=== PATIENT | male | born 1975 | race Caucasian/White ===

== ENCOUNTER → 2019-12-02 | Outpatient (CLI) | payer MEDICAID ==
[~2019-12-02] MED LIST: ARIP10TA9 PO; CRESTOR5 MG PO; DIVA-53 PO; FLUO40CA2 PO; HYDR-3165 PO
== END ==
LOC: EDBD 13:09 → LAB 13:09
PROVIDERS: ATTEND Orthopaedic Surgery
DX: Z01.812 Encounter for preprocedural laboratory examination (principal); Z20.828 Contact with and (suspected) exposure to other viral communicable diseases; G56.20 Lesion of ulnar nerve, unspecified upper limb
CPT/HCPCS: U0003-CS

== ENCOUNTER 2019-12-05 05:48 | Day surgery (SDC) | payer MEDICAID ==
[~2019-12-05] VITALS: Ht 176.5 cm; Wt 114.3 kg
[2019-12-05] MEDS ORDERED: DIVA-53 PO (06:57)
[2019-12-05] MEDS ORDERED: LIDOCAINE 2% PF 5 ML VIAL. ONE (06:59)
[2019-12-05] MEDS ORDERED: DEXAMETHASONE SOD PHOS 4 MG/ML VIAL ONE (06:59)
[2019-12-05] MEDS ORDERED: PROPOFOL 10 MG/ML (20ML) VIAL. IV ONE (06:59)
[2019-12-05] MEDS ORDERED: ONDANSETRON PF 4 MG/2 ML VIAL. ONE (06:59)
[2019-12-05] MEDS ORDERED: MORPHINE SULFATE 2 MG/ML VIAL. IV PRN (07:00)
[2019-12-05] MEDS ORDERED: PROCHLORPERAZINE 10 MG/2 ML VIAL. IV PRN (07:00)
[2019-12-05] MEDS ORDERED: IV RINGERS,LACTATED 1000ML 1,000 ML IV SCH (07:00)
[2019-12-05] MEDS ORDERED: MIDAZOLAM HCL/PF 2 MG/2 ML VIAL. ONE (07:00)
[2019-12-05] MEDS ORDERED: fentaNYL PF VIAL 100 MCG/2 ML VIAL IV PRN ×2 (07:00)
[2019-12-05] MEDS ORDERED: HYDROmorphone 2 MG/ML VIAL IV PRN (07:00)
[2019-12-05] MEDS ORDERED: fentaNYL PF VIAL 100 MCG/2 ML VIAL ONE (07:00)
[2019-12-05] MEDS ORDERED: ONDANSETRON PF 4 MG/2 ML VIAL. IV PRN (07:00)
[2019-12-05] MEDS ORDERED: FLUO40CA2 PO (07:02)
[2019-12-05] MEDS ORDERED: CRESTOR5 MG PO (07:03)
[2019-12-05] MEDS ORDERED: ARIP10TA9 PO (07:05)
[2019-12-05] MEDS ORDERED: HYDR-3165 PO (07:43)
--- NOTE | 2019-12-05 07:44 | DISCH ---
DISCHARGE INSTRUCTIONS Condition on Discharge Condition on Discharge: Stable Activity After Discharge Activity Instructions for Disc: Other, see below (Gentle motion to right elbow, may do fine motor use and keep arm moving to allow the nerve to glide after release) Weight Bearing Status after Di: As tolerated Diet after Discharge Diet after Discharge: Regular Wound Incision Care Wound/Incision Care: Change dressing (May remove dressing in 3 days may then shower if no drainage and can cover with light dressing as needed) Contacting the DRGypsy after DC Call your doctor for: Concerns you may have Follow-Up Follow up with: Dr. Mccoy 10 days LITZY MCCOY MD Dec 05, 2019 07:44
[2019-12-05] MEDS ORDERED: BUPIVACAINE-EPI 0.5%-1:200000 MPF 30 ML VIAL. INJ ONE (07:45)
[2019-12-05] MEDS ORDERED: ePHEDrine PF IN SALINE 50 MG/10 ML SYRINGE. IV ONE (07:47)
[2019-12-05] MEDS ORDERED: HYDROcodone/APAP 7.5/325MG 1 TAB TABLET ONE (09:12)
[2019-12-05] MEDS ORDERED: HYDROcodone/APAP 7.5/325MG 1 TAB TABLET PO ONE (09:30)
[2019-12-05 09:35] VITALS: BP 135/75
--- NOTE | 2019-12-05 23:31 | PDOC4 ---
Operative Note Operative Note Date of surgery: 12/05/2019 Preoperative diagnosis: Right cubital tunnel syndrome Postoperative diagnosis: Same with severe ulnar nerve compression at cubital tunnel Operative procedure: Right cubital tunnel release Surgeon: Darius [employer] Sorter: Prashanth wilson Anesthesia: General Estimated blood loss: 15 cc Complications: None Operative indications: Patient has severe symptoms with ongoing worsening ulnar neuropathy documented by EMG and also some tremors scheduled to be worked up by neurology in the future but not again directly related to this diagnosis. I had gone over with him operative versus nonoperative treatment options of the cubital tunnel syndrome and given that he is having worsening of his ongoing severe symptoms he wishes to proceed with surgery after having discussed risks benefits postoperative course to include possible nerve damage incomplete relief infection stiffness and pain medical or other anesthetic complications among others including the fact that his recovery could be over a long period of time and that we release the pressure on the nerve but the body overall has to respond in terms of his ongoing nerve function Operative text: Patient was identified procedure verified patient placed in the supine position on the operating table. After adequate amounts of general anesthesia were administered the right upper extremity was prepped and draped in standard sterile fashion with an upper arm tourniquet. After timeout was performed patient procedure identified and verified the right upper extremity was exsanguinated by Esmarch bandage tourniquet inflated to 250 mmHg a curvilinear incision was made over the medial elbow dissection carried out down to the cubital tunnel area which was carefully unroofed by sharp dissection under direct vision. The nerve was protected and release was performed from its proximal extent at the medial intermuscular septum throughout the entirety of the cubital tunnel and continuing through its insertion and early course of the flexor musculature. Severe compression was noted at the cubital tunnel and although the nerve was completely released no subluxation was noted throughout elbow flexion and extension and therefore transposition was not performed. Bleeding points were controlled by electrocautery thorough irrigation carried out normal saline solution closure accomplished with buried Vicryl suture and skin closure with nylon suture. Sterile soft dressings were applied fingers we re noted to be warm pink following deflation of the tourniquet and patient was returned to recovery room stable condition having tolerated the procedure well. Prashanth wilson was present for the procedure assisted in the patient positioning prepping draping retraction closure and dressings LITZY RODRIGUEZ MD Dec 05, 2019 23:31
== END 2019-12-05 11:01 | disposition home or self-care (01) ==
LOC: SURG 05:48 → MERGE 07:30 → SURG 11:01
PROVIDERS: ATTEND Orthopaedic Surgery
DX: G56.21 Lesion of ulnar nerve, right upper limb (principal); Z88.8 Allergy status to other drugs, medicaments and biological substances; Z79.899 Other long term (current) drug therapy
CPT/HCPCS: 64718; A7015; J0690; J1100; J2250; J2405; J2704; J3010

== ENCOUNTER → 2020-03-15 | Outpatient (CLI) | payer MEDICAID ==
--- NOTE | 2020-03-17 12:04 | SLEEP ---
DATE OF STUDY: 03/15/2020 HOME SLEEP STUDY ATTENDING PHYSICIAN: Dr. Doug Brown The patient is a 44-year-old who weighs 260 pounds with a BMI of 39.5. The patient underwent home sleep study performed at [facility]. During the night study, the patient had 493 obstructive apneas, 65 mixed apneas, 14 central apneas and 11 hypopneas. The patient's AHI was 82 per hour. Nocturnal oximetry study revealed an average oxygen saturation of 91% with the lowest of 80%. Sixty minutes were spent with oxygen saturation of less than 90%. Mean heart rate 67 beats per minute. IMPRESSION: 1. Severe obstructive sleep apnea at an AHI of 82 per hour. 2. Nocturnal hypoxia secondary to obstructive sleep apnea. RECOMMENDATIONS: 1. The patient should return to the sleep lab for in-lab titration study. 2. Once the patient is optimally treated with CPAP, then follow up in 4-6 weeks to assess compliance with CPAP and to document clinical improvement. 3. Weight loss is advised. 4. Avoid TRAPE[employer]IST depressants. 5. Caution regarding driving until symptoms of sleep apnea resolve with the use of CPAP. YESICA ROBLES MD DR: CUONG/sue JOB#: [id number] / [id number] Sasha Moctezuma MD
== END ==
LOC: RT 07:15
PROVIDERS: ATTEND Family Medicine
DX: R06.81 Apnea, not elsewhere classified (principal)
CPT/HCPCS: 95800; G0399

== ENCOUNTER → 2020-03-30 | Outpatient (CLI) | payer MEDICAID ==
--- NOTE | 2020-03-31 09:32 | SLEEP ---
DATE OF STUDY: 03/30/2020 SLEEP STUDY ATTENDING PHYSICIAN: Sasha Brown MD. The patient is a 44-year-old who weighs 250 pounds with a BMI of 37. The patient had a home sleep study on 03/15/2020 and was found to have severe MIMI at an AHI of 82 per hour. The patient also had nocturnal hypoxia. The patient was referred for in-lab CPAP titration study. During the night study, the patient spent 392 minutes in bed and slept for 376 minutes with a sleep efficiency of 96%. Sleep latency was 11 minutes with a REM latency of 249 minutes. Sleep architecture showed normal stage 1 and stage 2 sleep, increased slow wave and normal REM sleep. EKG monitoring revealed normal sinus rhythm, no sustained arrhythmias observed. Average heart rate 64 beats per minute. No PLMs observed. The patient was started on CPAP at 5 cm water and titrated up to 20 cm water. Due to persistent respiratory events, the patient was switched to BiPAP at 20/16 and titrated up to 25/20. At the final pressure, the patient slept for 53 minutes. The patient had supine as well as REM sleep. The patient's AHI was reduced to 1 per hour and oxygen saturation remained above 94%. The patient used a small size full face mask. IMPRESSION: 1. Severe obstructive sleep apnea diagnosed by home sleep study. 2. No clinically significant periodic limb movements. RECOMMENDATIONS: 1. BiPAP at a pressure of 25/20 completely eliminated the patient's sleep apnea and should be used on a nightly basis. 2. Follow up in 4-6 weeks to assess compliance with BiPAP and to document clinical improvement. 3. Weight loss is strongly advised. 4. Avoid CASTING [employer]SE [employer]ER depressants. 5. Caution regarding driving until symptoms of sleep apnea resolve with the use of BiPAP. 6. The patient used a small size full face mask. YESICA ROBLES MD DR: CUONG/sue JOB#: [id number] / [id number]
== END ==
LOC: SLPLAB 18:45
PROVIDERS: ATTEND Family Medicine
DX: G47.33 Obstructive sleep apnea (adult) (pediatric) (principal)
CPT/HCPCS: 95811

== ENCOUNTER 2020-06-14 17:09 | Emergency (ER) | payer MEDICAID ==
[~2020-06-14] VITALS: Ht 177.8 cm; Wt 105.0 kg
--- NOTE | 2020-06-14 19:58 | RAD ---
EXAM: AP View of the chest DATE: 06/14/2020 7:10 PM INDICATION: Reason: cough x 1 week RM 22 / Spl. Instructions: / History: COMPARISON: No Prior FINDINGS: The heart is not enlarged. Mediastinal and hilar contours are normal. No focal parenchymal airspace opacity. No pleural effusion or pneumothorax. IMPRESSION: 1. No radiographic evidence for acute cardiopulmonary process. Electronically signed by: Edwar Anton MD (06/14/2020 7:55 PM) JESSIKA
--- NOTE | 2020-06-14 20:21 | EKG ---
[facility] [address] [place] [address] Test Date: 2020-06-14 Test Time: 20:15:05 Pat Name: ENEDINA HO Department: Room: Gender: M Manager Trust: : 1975 Requested By: DECLAN GARCIA Order Number: [id number] Reading MD: Measurements Intervals [place] Rate: 81 P: 45 NC: 160 QRS: 14 QRSD: 102 T: 52 QT: 384 QTc: 447 Interpretive Statements SINUS RHYTHM QRS(T) CONTOUR ABNORMALITY CONSIDER ANTEROSEPTAL MYOCARDIAL DAMAGE POSSIBLY ABNORMAL ECG RI6.01 No previous ECG available for comparison
--- NOTE | 2020-06-14 20:23 | ED.ADGEN ---
Past Medical History Past Medical History: Anxiety, Depression, Schizophrenia Additional Past Medical Histor: autism Additional Past Surgical Histo: R elbow Smoking Status: Former Smoker (quit 18 months ago) Alcohol Use: None Drug Use: None General Adult EDM: Chief Complaint: SHORTNESS OF BREATH HPI: HPI: Patient is a 45 year old male who presents to the emergency department with complaints of a sinus headache, nasal congestion, dry cough, sore throat, nausea, and diarrhea for the last week. Patient reports that he has had 2 episodes of diarrhea in the last 24 hours. He denies any blood in his stools, abdominal pain, decreased urine output, dysuria, hematuria, increased urinary frequency. Patient denies any dizziness or palpitations. He reports that he has received both of his Covid immunizations and he denies any exposure to anyone with known COVID-19. Patient denies any fever, shortness of breath, wheezing, vision changes, numbness, tingling, or weakness. The patient currently reports discomfort in his chest that he describes as tightness, he currently rates the pain 4 out of 10 on the pain scale if he coughs the pain increases to 8 out of 10, he denies any alleviating factors. Review of Systems: Review of Systems: Complete ROS is negative unless otherwise noted in HPI. Current Medications: Current Medications Medications (Trade) Dose Ordered Sig/Domenic Start Time Stop Time Status Last Admin Dose Admin Naproxen (Naprosyn) 500 mg 1X ONCE 06/14/20 22:30 06/14/20 22:31 DC 06/14/20 22:30 500 MG Allergies: Allergies: Allergies Coded Allergies Type Severity Reaction Last Updated Verified lurasidone Allergy Severe seizures 12/05/19 Yes ketorolac Allergy Intermediate hives 06/14/20 Yes Physical Exam: PE: See Above Constitutional: Well developed, well nourished, no acute distress, obese HENT: Normocephalic, atraumatic, bilateral external ears normal, cobblestone appearance of posterior pharynx caridad, moist mucous membranes; nose congested with erythema and edema of the nasal turbinates bilaterally Eyes: PERRLA, conjunctiva injected bilaterally, no discharge. [] Neck: Normal range of motion, supple, nontender, no stridor. [] Cardiovascular:Heart rate regular rhythm, no murmur [] Lungs & Thorax: Bilateral breath sounds clear to auscultation, Respirations even and unlabored, no retractions, no respiratory distress, no wheezing, reproducible chest pain with palpation Skin: Warm, dry, no erythema, no rash. [] Back: No tenderness Extremities: No cyanosis, ROM intact, no edema Neurologic: Alert and oriented X 3, normal motor, normal sensory, no focal deficits noted. [] Psychologic: Affect normal, judgement normal, mood normal. Current Patient Data: Labs: Laboratory Tests Test 06/14/20 21:00 06/14/20 22:40 White Blood Count 5.9 x10^3/uL (4.0-11.0) Red Blood Count 4.75 x10^6/uL (4.30-5.70) Hemoglobin 13.6 g/dL (13.0-17.5) Hematocrit 40.8 % (39.0-53.0) Mean Corpuscular Volume 86 fL (79-100) Mean Corpuscular Hemoglobin 29 pg (25-35) Mean Corpuscular Hemoglobin Concent 33 g/dL (31-37) Red Cell Distribution Width 14.2 % (11.5-14.5) Platelet Count 250 x10^3/uL (140-400) Neutrophils (%) (Auto) 58 % (31-73) Lymphocytes (%) (Auto) 29 % (24-48) Monocytes (%) (Auto) 11 % (0-9) H Eosinophils (%) (Auto) 2 % (0-3) Basophils (%) (Auto) 1 % (0-3) Neutrophils # (Auto) 3.4 x10^3/uL (1.8-7.7) Lymphocytes # (Auto) 1.7 x10^3/uL (1.0-4.8) Monocytes # (Auto) 0.6 x10^3/uL (0.0-1.1) Eosinophils # (Auto) 0.1 x10^3/uL (0.0-0.7) Basophils # (Auto) 0.0 x10^3/uL (0.0-0.2) Sodium Level 141 mmol/L (136-145) Potassium Level 4.2 mmol/L (3.5-5.1) Chloride Level 105 mmol/L (98-107) Carbon Dioxide Level 28 mmol/L (21-32) Anion Gap 8 (6-14) Blood Urea Nitrogen 17 mg/dL (8-26) Creatinine 1.1 mg/dL (0.7-1.3) Estimated GFR (Cockcroft-Gault) 73.1 BUN/Creatinine Ratio 15 (6-20) Glucose Level 90 mg/dL (70-99) Calcium Level 8.7 mg/dL (8.5-10.1) Total Bilirubin 0.4 mg/dL (0.2-1.0) Aspartate Amino Transferase (AST) 21 U/L (15-37) Alanine Aminotransferase (ALT) 36 U/L (16-63) Alkaline Phosphatase 68 U/L (46-116) Creatine Kinase 164 U/L (39-308) Creatine Kinase MB (Mass) 1.3 ng/mL (0.0-3.6) Creatine Kinase MB Relative Index 0.8 % (0-4) Troponin I Quantitative < 0.017 ng/mL (0.000-0.055) Total Protein 7.4 g/dL (6.4-8.2) Albumin 4.4 g/dL (3.4-5.0) Albumin/Globulin Ratio 1.5 (1.0-1.7) SARS-CoV-2 RNA (LÁZARO) Negative (Negative) Laboratory Tests 06/14/20 21:00 Laboratory Tests 06/14/20 21:00 Vital Signs: Vital Signs Date Time Temp Pulse Resp B/P (MAP) Pulse Ox O2 Delivery O2 Flow Rate FiO2 06/14/20 21:45 79 18 141/79 (99) 99 Room Air 06/14/20 18:45 98.0 98.0 EKG: EK-sinus rhythm, rate 81, no STEMI read by Dr. Danielle[] Heart Score: C/O Chest Pain: Yes HEART Score for Chest Pain: HEART Score for Chest Pain Response (Comments) Value History Slighlty/Non-Suspicious 0 ECG Normal 0 Age < 45 0 Risk Factors >3 Risk Factors or Hx CAD 2 Troponin < Normal Limit 0 Total 2 Risk Factors: Risk Factors: DM, Current or recent (<one month) smoker, HTN, HLP, family histo ry of CAD, obesity. Risk Scores: Score 0 - 3: 2.5% MACE over next 6 weeks - Discharge Home Score 4 - 6: 20.3% MACE over next 6 weeks - Admit for Clinical Observation Score 7 - 10: 72.7% MACE over next 6 weeks - Early Invasive Strategies Radiology/Procedures: Radiology/Procedures: PROCEDURE: CHEST AP ONLY EXAM: AP View of the chest DATE: 06/14/2020 7:10 PM INDICATION: Reason: cough x 1 week RM 22 / Spl. Instructions: / History: COMPARISON: No Prior FINDINGS: The heart is not enlarged. Mediastinal and hilar contours are normal. No focal parenchymal airspace opacity. No pleural effusion or pneumothorax. IMPRESSION: 1. No radiographic evidence for acute cardiopulmonary process. [] Course & Med Decision Making: Course & Med Decision Making Pertinent Labs and Imaging studies reviewed. (See chart for details) 45-year-old male presented to the emergency department with multiple complaints Chest x-ray is unremarkable, EKG revealed no acute changes, CBC is unremarkable, CMP is unremarkable, CK and troponin levels were not elevated. Patient's vital signs are stable in the ER, COVID-19 test is pending. Physical exam is concerning for costochondritis and allergic rhinitis. Prescription written for naproxen. Patient encouraged to take a daily antihistamine, avoid exposure to airway irritants. Follow quarantine instructions until results of COVID-19 tests are known symptoms have resolved. Return to the ER if symptoms worsen or fever develops. Patient verbalized an understanding of home care, medications, follow-up, and return to ED instructions and was in agreement with the plan of care. [] Dragon Disclaimer: Dragon Disclaimer: This electronic medical record was generated, in whole or in part, using a voice recognition dictation system. Departure Departure Impression: Primary Impression: Acute costochondritis Additional Impressions: Allergic rhinitis Upper respiratory infection with cough and congestion Person under investigation for COVID-19 Disposition: 01 HOME / SELF CARE / HOMELESS Condition: STABLE Referrals: Sasha CONKLIN MD (PCP) Patient Instructions: Allergic Rhinitis, Costochondritis, [id number], Upper Respiratory Infection, Adult, [id number] Additional Instructions: Fill the prescription(s) and use as directed. Recommend that you take 10 mg of generic Zyrtec (cetirizine) or Claritin at bedtime and use over the counter Flonase (fluticasone) nasal spray 2 sprays each nostril once daily in the morning. You may take Tylenol as needed for pain/fever. Increase clear fluids. Avoid triggers such as smoke, fragrance, dust, and pollen. Follow-up with your primary care doctor if symptoms persist, return to the ER if symptoms worsen. Please follow the following quarantine instructions: You have been tested for or diagnosed with COVID-19. It is an infection caused by a new type of coronavirus. COVID-19 will cause cold-like or mild flu symptoms in most. It can cause more severe symptoms like problems breathing in some. There is no treatment for COVID-19. The body will clear the infection over time. Self-care will help to ease discomfort. Steps to Take: Self-Care Rest as needed. Healthy habits may help you feel better. Steps include: Choose healthy foods including fruits and vegetables. Drink water throughout the day. Get plenty of sleep each night. If you smoke, try to quit. It may ease breathing. Avoid alcohol. Keep Others Healthy The virus can spread to others. Droplets are released every time you sneeze or cough. The droplets can get into the mouth, nose, or eyes of people near you and lead to infection. To lower the chances of spreading COVID-19 to others: Stay at home until your doctor has said it is safe to leave. If you tested positive this will mean staying isolated until both of the following are true: At least 7 days have passed since the start of illness. You are free of fever for at least 72 hours without the use of medicine. During this time: - Avoid public areas, events, or transportation. Do not return to work or school until your doctor has said it is safe to do so. - Call ahead if you need to go to a medical center. Let them know you may have COVID-19. It will help them guide you where to go. They may also ask you to wear a facemask when you come to the office. - If you call for emergency medical services, let them know you may have COVID- 19. While at home: - Try to avoid close contact with others. Stay about 6 feet away. - If possible, spend most of your time in a separate room from others. - Use a face mask if you will be in close contact with others such as sharing a room or vehicle. - Have someone wipe down common surfaces in the home. Use household metal caster every day on areas like doorknobs, counters, or sinks. - Cough or sneeze into a tissue. Throw the tissue away right after use. If a tissue is not available, cough or sneeze into your elbow. - Wash your hands often. Wash them after sneezing or coughing. Use soap and w ater and wash for at least 20 seconds. Alcohol based hand photo mask cleaner can be used if soap and water is not available. - Do not prepare food for others. Avoid sharing personal items like forks, spoons, or toothbrushes. - Avoid close contact with pets while you are sick. There is no evidence of the virus passing to pets. This is a safety step until more is known about this virus. Isolation can be frustrating. Social interaction can help. Keep in touch with friends and family through phone and tech options. You can still interact with others in your home, just keep a safe distance of about 6 feet. Follow-up: Your doctors office will check in with you to see if there are any changes in your health. You may be asked to keep track of symptoms to share with them. They will also let you know when you are clear to be in public again. Problems to Look Out For: Contact your doctor if your recovery is not going as you expect. Get emergency care if you have problems such as: - Trouble breathing - Nonstop chest pain or pressure - Changes in awareness, confusion, or problems waking - Lips or face have bluish color - Worsening of symptoms If you think you have an emergency, call for emergency medical services right away. As taken from [facility] Naproxen (NAPROXEN) 500 Mg Tablet 1 TAB PO BID PRN for PAIN for 10 Days, #20 TAB 0 Refills Prov: DECLAN GARCIA APRN 06/14/20 Attending Signature Attending Signature I have participated in the care of this patient and I have reviewed and agree with all pertinent clinical information above including history, exam, and recommendations. Problem Qualifiers Additional Impressions: Allergic rhinitis Allergic rhinitis trigger: unspecified Allergic rhinitis seasonality: unspecified Qualified Codes: J30.9 - Allergic rhinitis, unspecified DECLAN GARCIA APRN Jun 14, 2020 20:22 PINEDA DANIELLE DO Jun 16, 2020 13:17
[2020-06-14 21:18] LABS: BASO % 1 % (0-3); EOS # 0.1 x10^3/uL (0.0-0.7); EOS % 2 % (0-3); HEMATOCRIT 40.8 % (39.0-53.0); HEMOGLOBIN 13.6 g/dL (13.0-17.5); LYMPH # 1.7 x10^3/uL (1.0-4.8); LYMPH % 29 % (24-48); MEAN CORPUSCULAR HEMOGLOBIN 29 pg (25-35); MEAN CORPUSCULAR HGB CONC 33 g/dL (31-37); MEAN CORPUSCULAR VOLUME 86 fL (79-100); MONO # 0.6 x10^3/uL (0.0-1.1); MONO % 11 % (0-9); NEUT # 3.4 x10^3/uL (1.8-7.7); NEUT % 58 % (31-73); PLATELET COUNT 250 x10^3/uL (140-400); RED BLOOD COUNT 4.75 x10^6/uL (4.30-5.70); RED CELL DISTRIBUTION WIDTH 14.2 % (11.5-14.5); WHITE BLOOD COUNT 5.9 x10^3/uL (4.0-11.0)
[2020-06-14 21:29] LABS: CALCIUM 8.7 mg/dL (8.5-10.1); CREATININE 1.1 mg/dL (0.7-1.3); GFR 73.1; POTASSIUM 4.2 mmol/L (3.5-5.1)
[2020-06-14 21:35] LABS: ALBUMIN 4.4 g/dL (3.4-5.0); ALBUMIN/GLOBULIN RATIO 1.5 (1.0-1.7); TOTAL BILIRUBIN 0.4 mg/dL (0.2-1.0); TOTAL PROTEIN 7.4 g/dL (6.4-8.2)
[2020-06-14 21:45] VITALS: BP 141/79
[2020-06-14] MEDS ORDERED: NAPR-514 PO (22:07)
[2020-06-14] MEDS ORDERED: NAPROXEN 500 MG TABLET PO ONE (22:30)
--- NOTE | 2020-06-15 15:14 | NUR ---
IP: Informed pt of negative COVID test. Pt verbalized understanding.
== END 2020-06-14 22:48 | disposition home or self-care (01) ==
LOC: ER 17:09
DX: M94.0 Chondrocostal junction syndrome [Tietze] (principal); Z20.822 Contact with and (suspected) exposure to COVID-19; J30.9 Allergic rhinitis, unspecified; J06.9 Acute upper respiratory infection, unspecified; R05 Cough; R09.81 Nasal congestion; F41.9 Anxiety disorder, unspecified; F32.9 Major depressive disorder, single episode, unspecified; F20.9 Schizophrenia, unspecified; Z87.891 Personal history of nicotine dependence; Z98.890 Other specified postprocedural states; Z88.8 Allergy status to other drugs, medicaments and biological substances
CPT/HCPCS: 36415; 71045; 80053; 82553; 84484; 85025; 93005; 99285; U0003; U0005